=== PATIENT | female | born 1985 | race Caucasian/White ===

== ENCOUNTER 2021-11-18 16:01 | Emergency (ER) | payer OTHER, SELFPAY ==
[2021-11-18 16:16] VITALS: BP 131/77; PULSE 95; RESP 16; TEMP 36.8; O2SAT 99
--- NOTE | 2021-11-18 16:50 | ED.GENADULT ---
HPI - General Adult General Chief complaint: Dental/Oral Stated complaint: Sore Throat,Mouth pain Time Seen by Provider: 11/18/21 16:40 Source: patient, RN notes reviewed and old records reviewed History of Present Illness HPI narrative: 36-year-old female who presents to [facility] care with complaints of sore throat since Thursday with some blisters along the tip of her tongue. She reports that tongue burn and is painful, no noted lesions on hands or on feet. Patient reports that day care where her son goes told her today that there is hand foot and mouth going around in day care. Patient denies any fevers or any other symptoms MD complaint: sore throat and mouth pain Onset (ago): day(s) (Day 3 of symptoms) Location: mouth (tongue and sore throat) Severity scale (1-10): 4 Treatments prior to arrival: other (salt water rinse) Related Data Home Medications Medication Instructions Recorded Confirmed levothyroxine 125 mcg tablet 125 mcg PO DAILY 11/18/21 11/18/21 sertraline 25 mg tablet 25 mg PO DAILY 11/18/21 11/18/21 Allergies Allergy/AdvReac Type Severity Reaction Status Date / Time No Known Allergies Allergy Verified 11/18/21 16:21 Review of Systems Review of Systems: CONSTITUTIONAL: Denies fever, chills, or sweats. EYES: Denies visual changes, redness, or discharge. ENT: Denies rhinorrhea, congestion, positive sore throat, no otalgia. Positive for blisters on tongue CARDIOVASCULAR: Denies chest pain, palpitations, or edema. RESPIRATORY: Denies cough or dyspnea. GASTROINTESTINAL: Denies abdominal pain, nausea, vomiting, or diarrhea. GENITOURINARY: Denies dysuria or hematuria. SKIN: Denies rash or itching. MUSCULOSKELETAL: Denies back pain, joint pain, or myalgia. NEUROLOGIC: Denies headache, numbness, or weakness. PSYCHIATRIC: History of anxiety or depression. All systems reviewed & are unremarkable except as noted in HPI and below PMFSH Past Medical History Medical History (Updated 11/18/21 @ 18:23 by Brinda Arthur NP) Anxiety and depression Hypothyroidism Social History Social History (Updated 11/18/21 @ 18:24 by Brinda Arthur NP) Smoking status: Never smoker Alcohol intake: current Alcohol use details: social Substance use: never Living arrangements: with family Gender identity (if verbalized by the patient): Female Comments At time of signature, agree with nursing past medical, surgical, social and family history. There is no relevant family history pertinent to the presenting complaint Exam Narrative: GENERAL: Well-appearing, well-nourished, and in no acute distress. HEAD: Normocephalic, atraumatic. EYES: PERRLA and EOMI. ENT: Nares clear, no rhinorrhea or epistaxis. Mucous membranes moist. Oral tip of tongue red blistery lesions which are painful, throat red with no lesions or exudates noted, no tonsil swelling NECK: Supple. No lymphadenopathy CHEST: Clear to auscultation. No respiratory distress. SaO2 99% on room air HEART: Regular rate and rhythm. No murmur heard. Normal peripheral pulses. ABDOMEN: Soft, nontender, nondistended, normal active bowel sounds. EXTREMITIES: Normal range of motion. No edema. SKIN: Warm, dry, no rash. No blisters noted on hands or feet NEURO: No focal deficits. Alert and oriented x3. Course Course Level of Care: Express Care Visit Vital Signs Vital signs: Vital Signs Temperature 36.8 C 11/18/21 16:16 Pulse Rate 95 11/18/21 16:16 Respiratory Rate 16 11/18/21 16:16 Blood Pressure 131/77 11/18/21 16:16 Pulse Oximetry 99 11/18/21 16:16 Oxygen Delivery Room Air 11/18/21 16:16 Temperature 36.8 C 11/18/21 16:16 Pulse Rate 95 11/18/21 16:16 Respiratory Rate 16 11/18/21 16:16 Blood Pressure 131/77 11/18/21 16:16 Pulse Oximetry 99 11/18/21 16:16 Oxygen Delivery Room Air 11/18/21 16:16 Medical Decision Making Differential Diagnosis Differential Diagnosis: strep pharyngitis, pharyngitis, stomat
== END 2021-11-18 17:24 | disposition home or self-care (01) ==
PROVIDERS: Emergency Provider Registered Nurse
DX: B08.4 Enteroviral vesicular stomatitis with exanthem (principal); J02.9 Acute pharyngitis, unspecified; E03.9 Hypothyroidism, unspecified; F41.9 Anxiety disorder, unspecified; F32.A Depression, unspecified
CPT/HCPCS: 87081; 87880; 99213; G0463

== ENCOUNTER 2023-08-11 14:30 | Emergency (ER) | payer OTHER, SELFPAY ==
--- NOTE | 2023-08-11 14:34 | ED.URI ---
HPI - URI/Sore Throat General Chief Complaint: Upper Respiratory Infection Stated Complaint: Sore throat, Cough Time Seen by Provider: 08/11/23 14:55 Source: patient and RN notes reviewed Mode of arrival: ambulatory Limitations: no limitations History of Present Illness HPI Narrative: 38-year-old female presents with concern for body aches, sore throat, painful swallowing, fever that started 3-4 days ago. She reports both her kids go to daycare. She is MD elicited complaint: sore throat Related Data Home Medications Medication Instructions Recorded Confirmed levothyroxine 125 mcg tablet 125 mcg PO DAILY 11/18/21 08/11/23 escitalopram oxalate 10 mg tablet 10 mg PO DAILY 08/11/23 08/11/23 Allergies Allergy/AdvReac Type Severity Reaction Status Date / Time No Known Allergies Allergy Verified 08/11/23 14:58 Review of Systems Review of Systems: CONSTITUTIONAL: Reports malaise, fever. EYES: Denies visual changes, redness, or discharge. ENT: Reports rhinorrhea, congestion, and sore throat. CARDIOVASCULAR: Denies chest pain, palpitations, or edema. RESPIRATORY: Reports cough. Denies dyspnea. GASTROINTESTINAL: Denies abdominal pain, vomiting, diarrhea. Reports nausea SKIN: Denies rash or itching. MUSCULOSKELETAL: Reports myalgia. NEUROLOGIC: Reports headache. All systems reviewed & are unremarkable except as noted in HPI and below PMFSH Past Medical History Medical History (Updated 08/11/23 @ 15:06 by Leia Son NP) Anxiety and depression Hypothyroidism Social History Social History (Updated 11/18/21 @ 18:24 by Brinda Arthur NP) Smoking status: Never smoker Alcohol intake: current Alcohol use details: social Substance use: never Living arrangements: with family Gender identity (if verbalized by the patient): Female Comments At time of signature, agree with nursing past medical, surgical, social and family history. There is no relevant family history pertinent to the presenting complaint Exam Narrative: GENERAL: Well-appearing, well-nourished, and in no acute distress. HEAD: Normocephalic EYES: PERRLA, conjunctivae clear ENT: Nares clear, turbinates edematous and erythematous, clear discharge. Mucous membranes moist. TM pearly finch with dull light reflex bilaterally; no tragal tenderness. Oropharynx erythematous without lesions. Tonsils not enlarged and without exudate, no drooling, no hoarseness, no trismus, uvula midline. NECK: Supple. No lymphadenopathy CHEST: Clear to auscultation, breath sounds equal. No wheezing, rhonchi, rales, or stridor. No respiratory distress, speaks in full sentences. HEART: Regular rate and rhythm. No murmur heard. SKIN: Warm, dry, no rash. NEURO: Alert and oriented x3. PSYCH: Normal mood and affect Course Course Emergency Course: Patient is aware of diagnosis, understands and agrees to treatment plan. Anticipatory guidance given. Patient agrees to follow-up as directed and is aware of reasons to seek care at the emergency department. Portions of this record may have been created with voice recognition software Level of Care: Express Care Visit Vital Signs Vital signs: Reviewed. MDM - URI/Sore Throat MDM Narrative Medical decision making narrative: Differential diagnosis considered: [place] virus, strep pharyngitis, allergic rhinitis, upper respiratory tract infection, sinusitis, rhinosinusitis, nasopharyngitis. viral pharyngitis, otitis media, otitis externa, pneumonia, bronchitis, viral cough syndrome, viral syndrome, and influenza. Exam findings show no acute concerns or changes; patient is non-toxic appearing and is in no distress. Patient is appropriate for outpatient treatment and follow-up. Lab Data Attestation: I reviewed the patient's lab results. Critical Care Time Critical Care Time Critical Care Time: No Discharge Plan Discharge Clinical Impression: Acute streptococcal pharyngitis Patient Disposit
[2023-08-11 14:45] VITALS: BP 128/69; PULSE 77; RESP 16; TEMP 36.7; O2SAT 100
== END 2023-08-11 15:11 | disposition home or self-care (01) ==
PROVIDERS: Emergency Provider Nurse Practitioner
DX: J02.0 Streptococcal pharyngitis (principal); F41.9 Anxiety disorder, unspecified; F32.A Depression, unspecified; E03.9 Hypothyroidism, unspecified
CPT/HCPCS: 87880; 99213; G0463